=== PATIENT | female | born 1955 | race Native Hawaiian/Other Pacific Islander ===

== ENCOUNTER 2019-05-26 07:53 | Outpatient (CLI) | payer OTHER | END 2019-05-26 08:13 | disposition short-term general hospital (02) | LOC: AMB 07:53 | DX: R10.9 Unspecified abdominal pain (principal); R11.2 Nausea with vomiting, unspecified | CPT/HCPCS: A0425; A0429 ==

== ENCOUNTER 2022-05-28 08:39 | Outpatient (CLI) | payer OTHER, MEDICARE ==
[2022-05-28 09:15] LABS: PLATELET COUNT 238 K/uL (152-353)
[2022-05-28 09:33] LABS: POTASSIUM 4.3 mmol/L (3.6-5.2)
== END 2022-05-28 19:58 | disposition home or self-care (01) ==
LOC: LABW 08:39
PROVIDERS: ATTEND Internal Medicine Nephrology
DX: I10 Essential (primary) hypertension (principal); E78.49 Other hyperlipidemia; Z79.899 Other long term (current) drug therapy; R80.8 Other proteinuria; E55.9 Vitamin D deficiency, unspecified; R53.82 Chronic fatigue, unspecified
CPT/HCPCS: 36415; 80053; 80061; 80074; 81002; 82043; 82306; 82570; 83036; 83516; 83970; 84100; 84156; 84165; 84166; 84550; 85027; 86037; 86160; 86334; 86335; 86430; 86592; 87535; G0432

== ENCOUNTER 2022-11-25 08:10 | Outpatient (CLI) | payer OTHER, MEDICARE ==
[2022-11-25 08:47] LABS: PLATELET COUNT 261 K/uL (152-353)
[2022-11-25 09:02] LABS: POTASSIUM 3.9 mmol/L (3.6-5.2)
== END 2022-11-25 19:34 | disposition home or self-care (01) ==
LOC: LABW 08:10
PROVIDERS: ATTEND Internal Medicine Nephrology
DX: N18.31 Chronic kidney disease, stage 3a (principal)
CPT/HCPCS: 36415; 80053; 81002; 82043; 82570; 84156; 85027

== ENCOUNTER 2023-06-04 07:39 | Outpatient (CLI) | payer OTHER, MEDICARE | END 2023-06-04 19:54 | disposition home or self-care (01) | LOC: LABW 07:39 | PROVIDERS: ATTEND Nurse Practitioner Adult Health | DX: E78.2 Mixed hyperlipidemia (principal); I10 Essential (primary) hypertension | CPT/HCPCS: 36415; 80061; 80076 ==